=== PATIENT | female | born 1975 | race Caucasian/White ===

== ENCOUNTER → 2021-04-27 16:08 | Outpatient (CLI) | payer OTHER, SELFPAY ==
[2021-04-27 16:48] LABS: Basophils # 0.2 K/mm3 (0-0.2); Eosinophils # 0.5 K/mm3 (0.0-0.4); Eosinophils % 3.3 % (0.1-12.0); Hematocrit 39.5 % (37.0-47.0); Lymphocytes # 4.1 K/mm3 (0.7-4.5); Lymphocytes % 26.2 % (10-50); Mean Corpuscular HGB Conc 30.4 g/dL (31.8-35.4); Mean Corpuscular Hemoglobin 28.2 pg (27.0-31.2); Mean Corpuscular Volume 92.5 fl (81-99); Mean Platelet Volume 8.6 fl (7.4-10.4); Monocytes # 1.1 K/mm3 (0.1-1.0); Monocytes % 6.8 % (1.7-9.3); Neutrophils # 9.8 K/mm3 (1.8-7.8); Neutrophils % 62.6 % (37.0-80.0); Red Blood Count 4.27 M/mm3 (4.20-5.40); Red Cell Distribution Width 16.8 % (11.5-17.5); White Blood Count 15.7 K/mm3 (4.8-10.8)
[2021-04-27 16:49] LABS: Platelet Count 1060 K/mm3 (142-424)
[2021-04-27 16:51] LABS: MANUAL DIFFERENTIAL MANUAL DIFFERENTIAL (MANUAL DIFF)
[2021-04-27 17:48] LABS: Eosinophils % 3 % (0-3); Hypochromasia 2+; Lymphocytes % 23 % (10-50); Monocytes % 7 % (2-9); Neutrophils % 67 % (42-76); Total Cells Counted 100
[2021-04-27 17:49] LABS: Anisocytosis 1+; Platelet Estimate Marked Increase; Target Cells 1+
[2021-04-27 18:28] LABS: Alanine Aminotransferase 20 U/L (12-78); Albumin Level 3.8 g/dl (3.5-5.0); Albumin/Globulin Ratio 1.5 (1.1-1.8); Alkaline Phosphatase 77 U/L (38-126); Anion Gap 9.8 mEq/L (5-15); Aspartate Amino Transferase 24 U/L (14-36); Bilirubin,Total 0.2 mg/dl (0.2-1.3); Blood Urea Nitrogen 9 mg/dl (7-17); Calcium 9.2 mg/dl (8.4-10.2); Carbon Dioxide 29 mmol/L (22.0-30.0); Chloride 104 mmol/L (98-107); Chol/HDL Ratio 3.6 (1-3.5); Cholesterol 135 mg/dl (140-200); Estimated Glomerular Filt Rate 109 ml/min (>60); GFR (African American) 131 ML/MIN (>60); Globulin 2.6 g/dL (1.3-3.2); Glucose 100 mg/dl (74-100); HDL Cholesterol 37 mg/dl (40-60); Potassium 4.8 mmoL/L (3.5-5.1); Sodium 138 mmol/L (136-145); Total Protein,Serum 6.4 g/dl (6.3-8.2); Triglycerides 130 mg/dl (30-150); VLDL Cholesterol 26 mg/dL (0-40)
[2021-04-27 18:39] LABS: Direct LDL Cholesterol 83.41 mg/dL (100-129)
[2021-04-27 18:58] LABS: Thyroid Stimulating Hormone 2.78 uIU/mL (0.465-4.68)
== END ==
PROVIDERS: Visit Provider Nurse Practitioner Family
DX: E11.9 Type 2 diabetes mellitus without complications (principal); I10 Essential (primary) hypertension; D75.839 Thrombocytosis, unspecified
CPT/HCPCS: 36415; 80053; 80061; 83036; 84443; 85007; 85025

== ENCOUNTER → 2022-08-28 12:06 | Outpatient (CLI) | payer OTHER, SELFPAY ==
[2022-08-28 12:41] LABS: Basophils # 0.3 K/mm3 (0-0.2); Basophils % 1.7 % (0.1-2.0); Eosinophils # 0.4 K/mm3 (0.0-0.4); Eosinophils % 2.2 % (0.1-12.0); Hematocrit 41.7 % (37.0-47.0); Hemoglobin 13.1 g/dL (12.2-16.2); Lymphocytes # 4.7 K/mm3 (0.7-4.5); Lymphocytes % 28.7 % (10-50); Mean Corpuscular HGB Conc 31.4 g/dL (31.8-35.4); Mean Corpuscular Hemoglobin 28.6 pg (27.0-31.2); Mean Corpuscular Volume 91.2 fl (81-99); Mean Platelet Volume 8.3 fl (7.4-10.4); Monocytes % 6.3 % (1.7-9.3); Neutrophils # 10.1 K/mm3 (1.8-7.8); Neutrophils % 61.2 % (37.0-80.0); Red Blood Count 4.57 M/mm3 (4.20-5.40); Red Cell Distribution Width 14.9 % (11.5-17.5); White Blood Count 16.4 K/mm3 (4.8-10.8)
[2022-08-28 12:44] LABS: Platelet Count 1025 K/mm3 (142-424)
[2022-08-28 12:46] LABS: Hemoglobin A1C 13.3 % (4.0-6.0); MANUAL DIFFERENTIAL MANUAL DIFFERENTIAL (MANUAL DIFF)
[2022-08-28 13:00] LABS: Microalbumin < 6.000 mg/L (0-16.7)
[2022-08-28 14:04] LABS: Alanine Aminotransferase 25 U/L (12-78); Albumin Level 4.1 g/dl (3.5-5.0); Albumin/Globulin Ratio 1.6 (1.1-1.8); Alkaline Phosphatase 118 U/L (38-126); Anion Gap 13.5 mEq/L (5-15); Aspartate Amino Transferase 24 U/L (14-36); Bilirubin,Total 0.3 mg/dl (0.2-1.3); Blood Urea Nitrogen 11 mg/dl (7-17); Calcium 9.1 mg/dl (8.4-10.2); Carbon Dioxide 26 mmol/L (22.0-30.0); Chloride 101 mmol/L (98-107); Chol/HDL Ratio 4.3 (1-3.5); Cholesterol 178 mg/dl (140-200); Estimated Glomerular Filt Rate 108 ml/min (>60); GFR (African American) 131 ML/MIN (>60); Globulin 2.6 g/dL (1.3-3.2); Glucose 295 mg/dl (74-100); HDL Cholesterol 41 mg/dl (40-60); Potassium 4.5 mmoL/L (3.5-5.1); Sodium 136 mmol/L (136-145); Total Protein,Serum 6.7 g/dl (6.3-8.2); Triglycerides 216 mg/dl (30-150); VLDL Cholesterol 43 mg/dL (0-40)
[2022-08-28 14:15] LABS: Direct LDL Cholesterol 112.76 mg/dL (100-129)
[2022-08-28 18:35] LABS: Anisocytosis 1+; Lymphocytes % 25 % (10-50); Monocytes % 4 % (2-9); Neutrophils % 71 % (42-76); Platelet Estimate Normal; Total Cells Counted 100
== END ==
PROVIDERS: PCP Nurse Practitioner Family; Visit Provider Nurse Practitioner Family
DX: E11.9 Type 2 diabetes mellitus without complications (principal); I10 Essential (primary) hypertension; D47.3 Essential (hemorrhagic) thrombocythemia; D72.9 Disorder of white blood cells, unspecified
CPT/HCPCS: 36415; 80053; 80061; 82043; 83036; 85007; 85025

== ENCOUNTER → 2022-11-21 10:40 | Outpatient (CLI) | payer OTHER, SELFPAY ==
[2022-11-21 11:10] LABS: Basophils # 0.1 K/mm3 (0-0.2); Basophils % 0.5 % (0.1-2.0); Eosinophils # 0.5 K/mm3 (0.0-0.4); Eosinophils % 3.2 % (0.1-12.0); Hematocrit 40.9 % (37.0-47.0); Hemoglobin 12.8 g/dL (12.2-16.2); Lymphocytes # 4.8 K/mm3 (0.7-4.5); Lymphocytes % 29.9 % (10-50); Mean Corpuscular HGB Conc 31.3 g/dL (31.8-35.4); Mean Corpuscular Hemoglobin 28.5 pg (27.0-31.2); Mean Platelet Volume 7.9 fl (7.4-10.4); Monocytes % 6.4 % (1.7-9.3); Neutrophils # 9.7 K/mm3 (1.8-7.8); Platelet Count 987 K/mm3 (142-424); Red Blood Count 4.49 M/mm3 (4.20-5.40); Red Cell Distribution Width 14.9 % (11.5-17.5); White Blood Count 16.2 K/mm3 (4.8-10.8)
[2022-11-21 11:31] LABS: Iron 55 ug/dL (37-170); MANUAL DIFFERENTIAL MANUAL DIFFERENTIAL (MANUAL DIFF)
[2022-11-21 11:44] LABS: Total Iron Binding Capacity 405 ug/dL (265-497)
[2022-11-21 12:06] LABS: Ferritin 9.81 ng/ml (6.24-137)
[2022-11-21 12:08] LABS: Lymphocytes % 43 % (10-50); Monocytes % 9 % (2-9); Neutrophils % 48 % (42-76); Total Cells Counted 100
[2022-11-21 12:09] LABS: Platelet Estimate Marked Increase; RBC Morphology Normal
[2022-11-23 10:45] LABS: Peripheral Smear Review Scanned Result
[2022-12-01 20:09] LABS: Interpretation: Negative (.)
== END ==
PROVIDERS: PCP Nurse Practitioner Family; Visit Provider Internal Medicine Medical Oncology
DX: D75.839 Thrombocytosis, unspecified (principal); D72.829 Elevated white blood cell count, unspecified
CPT/HCPCS: 36415; 81206; 81270; 82728; 83540; 83550; 85007; 85025

== ENCOUNTER → 2023-03-28 12:35 | Outpatient (CLI) | payer OTHER, SELFPAY ==
[2023-03-28 12:59] LABS: Basophils # 0.1 K/mm3 (0-0.2); Basophils % 0.6 % (0.1-2.0); Eosinophils # 0.3 K/mm3 (0.0-0.4); Eosinophils % 2.6 % (0.1-12.0); Hematocrit 43.3 % (37.0-47.0); Lymphocytes # 4.3 K/mm3 (0.7-4.5); Lymphocytes % 33.3 % (10-50); Mean Corpuscular Hemoglobin 27.7 pg (27.0-31.2); Mean Corpuscular Volume 92.3 fl (81-99); Mean Platelet Volume 7.5 fl (7.4-10.4); Neutrophils # 7.1 K/mm3 (1.8-7.8); Neutrophils % 55.5 % (37.0-80.0); Platelet Count 948 K/mm3 (142-424); Red Blood Count 4.69 M/mm3 (4.20-5.40); Red Cell Distribution Width 15.6 % (11.5-17.5); White Blood Count 12.8 K/mm3 (4.8-10.8)
== END ==
LOC: LAB 12:36
PROVIDERS: PCP Nurse Practitioner Family; Visit Provider Internal Medicine Medical Oncology
DX: D64.9 Anemia, unspecified (principal)
CPT/HCPCS: 36415; 85025

== ENCOUNTER 2023-11-04 16:35 | Emergency (ER) | payer OTHER, SELFPAY ==
[2023-11-04 17:15] VITALS: BP 167/88; PULSE 78; RESP 19; TEMP 36.6; O2SAT 99; BMI 33.1
--- NOTE | 2023-11-04 17:25 | EXP.UTC ---
Discharge Plan Disposition Patient Disposition: Home, Self-Care Condition: Good Prescriptions Prescriptions: No Action metformin 500 mg tablet extended release 24 hr 1,000 mg PO DAILY Patient Comments: TAKE 2 TABLETS BY MOUTH ONCE DAILY WITH EVENING MEAL FOR 90 DAYS aspirin [Adult Aspirin Regimen] 81 mg tablet,delayed release (DR/EC) 81 mg PO DAILY losartan 50 mg tablet 50 mg PO DAILY Referrals Follow up/Referrals: Provider,Referral, MD [Primary Care Provider] - See instructions Activity Restrictions/Add. Instructions Additional Instructions/Restrictions: Follow up with your Family Doctor you was given list of accepting Doctors you may call and try to get an appointment Make sure to wear compression socks/hose this may help with swelling and circulation Return if needed Straight to ER if any life threatening symptoms Clinical Impressions Clinical Impression: Lower extremity pain Qualifiers: Laterality: right Qualified Code(s): M79.604 - Pain in right leg Instructions Patient Instructions: DI for Leg Pain Discharge ED Provider: Devi Ragland [facility] General Stated complaint: right leg pain, hot to touch Time Seen by Provider: 11/04/23 17:25 History of Present Illness Provider Complaint: Patient states that for over a week she has been having pain in her right lower leg from her ankle to her knee and at times it will swell and look red and feels warm inside worried that she may have a blood clot or something States that swelling is worse when she is up walking on it at work Denies injury States that swelling is down today because she didnt work and has been off of it Related Data Home Medications Medication Instructions Recorded Confirmed aspirin 81 mg tablet,delayed 81 mg PO DAILY 11/21/22 11/04/23 release (Adult Aspirin Regimen) losartan 50 mg tablet 50 mg PO DAILY 11/21/22 11/04/23 metformin 500 mg tablet,extended 1,000 mg PO DAILY 11/21/22 11/04/23 release 24 hr Allergies Allergy/AdvReac Type Severity Reaction Status Date / Time milk Allergy Verified 11/04/23 17:40 [facility] Disclaimer: The information contained in this section may have been updated after the patient was seen, as this information can be updated by other users. Medical History Asthma HTN (hypertension), benign T2DM (type 2 diabetes mellitus) Surgical History H/O section Family History Other Alcoholism Cancer Coronary artery disease Hypertension Stroke Social History Smoking Status: Never smoker alcohol intake: current current occupational status: employed Travel in the last 8 weeks: None ROS Obtained: Yes All systems reviewed & no additional complaints except as documented and Yes Systems reviewed as appropriate & no additional complaints except as documented Constitutional Constitutional: Reports system reviewed and no additional complaints, except as documented, Reports as per HPI and Denies fever(s) ENT Ears, Nose, Mouth, and Throat: Reports system reviewed and no additional complaints, except as documented and Reports as per HPI Cardiovascular Cardiovascular: Reports system reviewed and no additional complaints, except as documented and Reports as per HPI Respiratory Respiratory: Reports system reviewed and no additional complaints, except as documented and Reports as per HPI Musculoskeletal Musculoskeletal: Reports system reviewed and no additional complaints, except as documented, Reports as per HPI and Reports other Comments: Pain in right lower ext, Denies known injury reports redness on an off and feeling hot inside worried about blood clot Physical Exam General General appearance: alert and in no apparent distress ENT ENT exam: Present mucous membranes moist Respiratory Respiratory exam: Present normal lung sounds bilaterally; Absent respiratory distress or wheezes Cardiovascular Cardiovascular exam: Present regular rate, normal rhythm and normal heart sounds Expanded Lower Extremity Exam Right: Leg image: 1. no swelling, no redness, no discoloration noted Lower leg exam: Present tenderness; Absent swelling, abrasion, ecchymosis, deformity, crepitus, dislocation or erythema Ankle exam: Present normal inspection; Absent swelling, abrasion, laceration, ecchymosis, deformity, crepitus, dislocation or erythema Foot/toe exam: Present normal inspection; Absent tenderness, swelling, abrasion, laceration or erythema Neurovascular/Tendon exam: Present normal capillary refill; Absent pulse deficit Gait: observed and normal Neurological Exam Neurological exam: Present alert, oriented X3 and normal gait Medical Decision Making [place] Inquiry Pt receiving controlled substance: No [place] was queried for this patient: No Orders (Tests/Meds): ORDERS Category Date Time Status CA venous doppler LE RT Stat Y 11/04/23 17:19 Completed US Data US Images: Lower Extremity Preliminary Findings: Normal/NAD Findings Narrative: no DVT
[2023-11-04 18:04] VITALS: BP 167/88; PULSE 78; RESP 19; TEMP 36.6; O2SAT 99
== END 2023-11-04 18:04 | disposition home or self-care (01) ==
PROVIDERS: Emergency Provider Nurse Practitioner
DX: M79.604 Pain in right leg (principal); I10 Essential (primary) hypertension; E11.9 Type 2 diabetes mellitus without complications; Z79.84 Long term (current) use of oral hypoglycemic drugs
CPT/HCPCS: 93971; 99204; 99212; G0463

== ENCOUNTER 2024-01-08 13:27 | Emergency (ER) | payer OTHER, SELFPAY ==
[2024-01-08] VITALS (10 sets, daily range): BP systolic 119–158; BP diastolic 78–98; PULSE 72–95; RESP 13–18; TEMP 36.7–36.8; O2SAT 95–100; BMI 32.8
--- NOTE | 2024-01-08 13:38 | ECG_ITS ---
APPROVED REPORT Exam: Resting ECG HR:82 bpm ECG Measurements Heart Rate 82 AXES NE 176 P 59 QRSd 88 QRS 78 QT 359 T 60 QTc 397 Conclusion SINUS RHYTHM NORMAL ECG Electronically signed by : EZIO BURNETTE, 01/09/2024 15:58:49
[2024-01-08 13:53] LABS: Basophils # 0.1 K/mm3 (0-0.2); Basophils % 0.5 % (0.1-2.0); Eosinophils # 0.4 K/mm3 (0.0-0.4); Eosinophils % 1.9 % (0.1-12.0); Hematocrit 43.6 % (37.0-47.0); Hemoglobin 13.7 g/dL (12.2-16.2); Lymphocytes # 4.9 K/mm3 (0.7-4.5); Lymphocytes % 25.9 % (10-50); Mean Corpuscular HGB Conc 31.5 g/dL (31.8-35.4); Mean Corpuscular Hemoglobin 29.9 pg (27.0-31.2); Mean Corpuscular Volume 95.1 fl (81-99); Mean Platelet Volume 7.2 fl (7.4-10.4); Monocytes % 5.2 % (1.7-9.3); Neutrophils # 12.7 K/mm3 (1.8-7.8); Neutrophils % 66.5 % (37.0-80.0); Platelet Count 864 K/mm3 (142-424); Red Blood Count 4.59 M/mm3 (4.20-5.40); Red Cell Distribution Width 15.2 % (11.5-17.5); White Blood Count 19.1 K/mm3 (4.8-10.8)
[2024-01-08 13:54] LABS: MANUAL DIFFERENTIAL MANUAL DIFFERENTIAL (MANUAL DIFF)
--- NOTE | 2024-01-08 13:55 | PC.NURSE ---
DR BURNETTE AT BEDSIDE
[2024-01-08 13:56] LABS: Chloride 103 mmol/L (98-107); Sodium 134 mmol/L (136-145)
[2024-01-08 13:57] LABS: Potassium 3.9 mmoL/L (3.5-5.1)
--- NOTE | 2024-01-08 13:58 | CT_ITS ---
FINAL REPORT CLINICAL HISTORY: headache, blurred vision COMPARISON: None FINDINGS: CT NECK ANGIO, WITHOUT AND WITH CONTRAST TECHNIQUE: Thin section axial CT with IV contrast supplemented with 3D MIP reconstruction NASCET criteria and technique was utilized during interpretation. FINDINGS: Aortic arch: Arch shows no significant narrowing. Great vessel origins are widely patent. Right carotid: No significant stenosis is seen of the cervical common or internal carotid artery. Left carotid: No significant stenosis is seen of the cervical common or internal carotid artery. Vertebrals: Left vertebral artery is dominant. No significant stenosis is present. IMPRESSION: No significant stenosis of the cervical carotid arteries This study was performed using automated techniques to achieve radiation exposure as low as reasonably Reviewed, Interpreted and Dictated by Clau Rodriguez MD Transcribed by Shira Barbosa Authenticated and [facility]
--- NOTE | 2024-01-08 13:58 | CT_ITS ---
FINAL REPORT CLINICAL HISTORY: headache, blurred vision COMPARISON: None FINDINGS: CTA HEAD TECHNIQUE: Thin section axial CT with contrast with 3D MIP reconstruction FINDINGS: No aneurysm is seen. Major intracranial vessels are patent without significant stenosis. . Note is made of a normal variant, the A1 segment of the right anterior cerebral artery is not seen, and the right NOBLE circulation is supplied by a patent anterior communicating artery from the left side. IMPRESSION: Normal variant of absent A1 segment of the right anterior cerebral artery. No intracranial vascular abnormality identified. This study was performed using automated techniques to achieve radiation exposure as low as reasonably achievable Reviewed, Interpreted and Dictated by Clau Rodriguez MD Transcribed by Shira Barbosa Authenticated and [facility]
--- NOTE | 2024-01-08 13:58 | CT_ITS ---
FINAL REPORT TECHNIQUE: Noncontrast exam CLINICAL HISTORY: headache, blurred vision COMPARISON: None FINDINGS: No abnormal density is seen. Ventricles are normal. There is no hemorrhage. No mass effect is seen. Bone windows show no evidence of fracture. IMPRESSION: No acute findings Reviewed, Interpreted and Dictated by Clau Rodriguez MD Transcribed by Shira Barbosa Authenticated and [facility]
[2024-01-08 13:59] LABS: Alanine Aminotransferase 25 U/L (12-78); Albumin Level 3.8 g/dl (3.5-5.0); Albumin/Globulin Ratio 1.4 (1.1-1.8); Alkaline Phosphatase 84 U/L (38-126); Anion Gap 12.9 mEq/L (5-15); Aspartate Amino Transferase 23 U/L (14-36); Bilirubin,Total 0.6 mg/dl (0.2-1.3); Blood Urea Nitrogen 8 mg/dl (7-17); Calcium 8.8 mg/dl (8.4-10.2); Carbon Dioxide 22 mmol/L (22.0-30.0); Creatinine Clearance Estimated 169 mL/min (50-200); Estimated Glomerular Filt Rate 133 ml/min (>60); GFR (African American) 161 ML/MIN (>60); Globulin 2.8 g/dL (1.3-3.2); Glucose 335 mg/dl (74-100); Total Protein,Serum 6.6 g/dl (6.3-8.2)
--- NOTE | 2024-01-08 14:02 | PC.NURSE ---
called respiratory to let them know about vbg ordered
--- NOTE | 2024-01-08 14:04 | PC.NURSE ---
RESPIRATORY AWARE OF VBG
--- NOTE | 2024-01-08 14:05 | XR_ITS ---
FINAL REPORT CLINICAL HISTORY: leukocytosis, feeling unwell COMPARISON: None FINDINGS: No acute pulmonary density is evident. There is no evidence of effusion or other pleural disease. The mediastinum has a normal appearance. The cardiac silhouette is unremarkable. IMPRESSION: Unremarkable chest exam. Reviewed, Interpreted and Dictated by Clau Rodriguez MD Transcribed by Shira Barbosa Authenticated and [facility]
[2024-01-08] MEDS: LACTATED RINGERS 1000ML 1,000 ML 999 ML IV (14:06)
[2024-01-08 14:11] LABS: Creatine Kinase 59 U/L (30-135); Magnesium 1.4 mg/dl (1.6-2.3)
--- NOTE | 2024-01-08 14:11 | PC.NURSE ---
PT ASSISTED TO RESTROOM AND BACK TO ROOM. URINE SAMPLE COLLECTED AND SENT TO LAB.
[2024-01-08 14:13] LABS: Lactate Venous 1.3 mmol/L (0.4-2.0); VBG Base Excess -3.6 mmol/L (-2.4-2.3); VBG HCO3 21.2 mmol/L (23-30); VBG Oxygen Saturation 76.4 % (50-70); VBG PCO2 35.3 mmol/L (35-51); VBG PO2 39.8 mmol/L (28-40); VBG Total CO2 22.3 mmol/L (23-27)
[2024-01-08 14:15] LABS: Activated Partial Thrombo Time 25.6 seconds (22.8-30.6); Prothrombin Time 10.2 seconds (10.1-12.5)
[2024-01-08 14:16] LABS: Microscopic, Urine URINE MICROSCOPIC (MICROSCOPIC)
[2024-01-08 14:16] LABS: Troponin I < 0.01 ng/ml (0.00-0.034)
[2024-01-08 14:20] LABS: Appearance,Urine CLEAR (Clear); Bilirubin,Urine Negative (Negative); Blood, Urine Negative (Negative); Color,Urine YELLOW (Yellow); Glucose,Urine (UA) 3+ (Negative); Ketones,Urine 1+ (Negative); Leukocyte Esterase,Urine Negative (Negative); Nitrate,Urine Negative (Negative); Protein,Urine Negative (Negative); Specific Gravity, Urine 1.025 (1.005-1.030); Urobilinogen,Urine 0.2 EU/dl (0.2)
[2024-01-08] MEDS: SODIUM CHLORIDE 0.9% 10ML SYR (RAD ONLY) 10 ML IV (14:23)
[2024-01-08] MEDS: 0.9 % SODIUM CHLORIDE 50 ML VIAL IV (14:23)
[2024-01-08] MEDS: IOPAMIDOL-370 (76%);100ML BOTTLE 100 ML IV (14:23)
[2024-01-08] MEDS: MAGNESIUM SULFATE IN WATER 2 GM/50 ML PIGGYBACK IV (14:23)
--- NOTE | 2024-01-08 14:25 | ED_ITS ---
Discharge Plan Disposition Patient Disposition: Home, Self-Care Prescriptions Prescriptions: No Action metformin 500 mg tablet extended release 24 hr 1,000 mg PO DAILY Patient Comments: TAKE 2 TABLETS BY MOUTH ONCE DAILY WITH EVENING MEAL FOR 90 DAYS aspirin [Adult Aspirin Regimen] 81 mg tablet,delayed release (DR/EC) 81 mg PO DAILY losartan 50 mg tablet 50 mg PO DAILY Referrals Follow up/Referrals: Margy Jc APRN [Primary Care Provider] - See instructions Activity Restrictions/Add. Instructions Additional Instructions/Restrictions: You may call [facility] endocrinology to make a follow-up appointment regarding your diabetes medications and management. You may call [phone] to make an appointment. No emergent medical condition identified today please return with any significant worsening symptoms or other concerns Clinical Impressions Clinical Impression: Hyperglycemia, General weakness, Headache, Hypomagnesemia Discharge ED Provider: Martha Diaz General Adult HPI <Martha Diaz DO - Last Filed: 01/08/24 14:58> General Chief complaint: Dizziness Stated complaint: weakness, leg pain , dizzy Time Seen by Provider: 01/08/24 13:36 Mode of Arrival: Ambulatory Source of Information: Patient Limitations: No Limitations Description of Symptoms (Recalled from ER Triage Doc. by RN): PT STATES SHE WOKE UP THIS AM WITH BLURRED VISION AND DIZZINESS, JUST STATES SHE FEELS OFF, HAD THIS SAME EPISODE LAST FRIDAY WENT TO [place] [facility] WHERE SHE RECEIVED 2L OF FLUIDS AND FELT BETTER, HAS FELT BETTER SINCE UNTIL TODAY, HX DM, STATES BS HAS BEEN HIGH AND WONDERS IF THAT MAY BE CAUSING IT History of Present Illness HPI narrative: This patient is a 48-year-old female with a history of hypertension, type 2 diabetes, and asthma presenting to the emergency department for evaluation with concern for headache, blurry vision, lightheadedness, and just feels off. She states that she is having a lot of aching and cramps in her legs. She thought maybe her blood sugar was high, so she did check it and it was greater than 400. She took her metformin, but states that she feels that this is likely because she has not been watching what she eats. She is not on insulin. Patient notes that this has been happening to her for a little bit, and she was evaluated 2 weeks ago in [place] emergency department where she was told she was dehydrated. She received 2 L of IV fluids. This did help and she had been feeling better since then until yesterday. Yesterday she started feeling like she was not herself. She denies any fevers, chills, numbness, tingling, weakness, gait disturbance, or other concerns. On review of systems, she does note leg swelling that is worse at the end of a long workday in which she stands on her feet all the time. No issues when she is able to rest. Related Data Home Medications Medication Instructions Recorded Confirmed aspirin 81 mg tablet,delayed 81 mg PO DAILY 11/21/22 01/08/24 release (Adult Aspirin Regimen) losartan 50 mg tablet 50 mg PO DAILY 11/21/22 01/08/24 metformin 500 mg tablet,extended 1,000 mg PO DAILY 11/21/22 01/08/24 release 24 hr Allergies Allergy/AdvReac Type Severity Reaction Status Date / Time milk Allergy Verified 11/04/23 17:40 [facility] <Martha Diaz DO - Last Filed: 01/08/24 14:58> [facility] Disclaimer: The information contained in this section may have been updated after the patient was seen, as this information can be updated by other users. Medical History Asthma T2DM (type 2 diabetes mellitus) HTN (hypertension), benign Surgical History H/O section Family History Other Alcoholism Cancer Coronary artery disease Hypertension Stroke Social History Smoking Status: Never smoker alcohol intake: current alcohol intake frequency: holidays/special occasions only current occupational status: employed Travel in the last 8 weeks: None <Martha Diaz DO - Last Filed: 01/08/24 14:58> ROS Obtained: Yes All systems reviewed & no additional complaints except as documented Physical Exam <Martha Diaz DO - Last Filed: 01/08/24 14:58> General General appearance: alert, in no apparent distress and obese Head Head exam: atraumatic and normocephalic Eye Eye exam: Present normal appearance, PERRL and EOMI ENT ENT exam: Present normal exam, normal oropharynx, mucous membranes moist and normal external ear exam Neck Neck exam: Present normal inspection, full ROM and trachea midline; Absent tenderness Chest Chest inspection: Present normal inspection and symmetric chest wall rise; Absent tenderness Respiratory Respiratory exam: Present normal lung sounds bilaterally; Absent respiratory distress, wheezes, stridor or accessory muscle use Cardiovascular Cardiovascular exam: Present regular rate and normal rhythm Abdominal Exam Abdominal exam: Present soft; Absent distention, tenderness or guarding Extremities Exam Extremities exam: Present normal inspection, full ROM and normal capillary refill; Absent tenderness or edema Back Exam Back exam: Present normal inspection and full ROM; Absent tenderness Neurological Exam Neurological exam: Present alert, oriented X3, CN II-XII intact and normal gait; Absent motor sensory deficit Psychiatric Psychiatric exam: Present normal affect and normal mood Skin Skin exam: Present warm and dry Medical Decision Making <Martha Diaz, DO - Last Filed: 01/08/24 14:58> Medical Records Medical records reviewed: Yes I reviewed the patient's medical records. [place] Inquiry Pt receiving controlled substance: No Vital Signs: 01/08/24 13:28 01/08/24 13:33 01/08/24 13:39 Temperature 98.2 F Temperature Source Oral Pulse Rate 89 89 Pulse Rate [Right Radial] 95 H Respiratory Rate 18 Blood Pressure 158/97 H 139/82 Blood Pressure [Right Arm] 158/97 H Blood Pressure Mean Blood Pressure Mean [Right Arm] 117 Blood Pressure Source [Right Arm] Automatic Cuff Blood Pressure Position [Right Arm] Sitting 02 Sat by Pulse Oximetry 98 97 95 Oxygen Delivery Method Room Air Room Air Room Air 01/08/24 14:30 01/08/24 14:46 01/08/24 15:00 Temperature Temperature Source Pulse Rate 78 84 79 Pulse Rate [Right Radial] Respiratory Rate 18 16 18 Blood Pressure 141/87 H 152/82 H 137/78 Blood Pressure [Right Arm] Blood Pressure Mean 105 105 103 Blood Pressure Mean [Right Arm] Blood Pressure Source [Right Arm] Blood Pressure Position [Right Arm] 02 Sat by Pulse Oximetry 99 97 96 Oxygen Delivery Method 01/08/24 15:31 01/08/24 15:45 01/08/24 16:45 Temperature Temperature Source Pulse Rate 78 72 75 Pulse Rate [Right Radial] Respiratory Rate Blood Pressure 119/98 H Blood Pressure [Right Arm] Blood Pressure Mean Blood Pressure Mean [Right Arm] Blood Pressure Source [Right Arm] Blood Pressure Position [Right Arm] 02 Sat by Pulse Oximetry 97 100 98 Oxygen Delivery Method Room Air Lab Data Lab results reviewed: Yes I reviewed the patient's lab results. Lab Results 01/08/24 13:38: WBC 19.1 H, RBC 4.59, Hgb 13.7, Hct 43.6, MCV 95.1, MCH 29.9, M CHC 31.5 L, RDW 15.2, Plt Count 864 H, MPV 7.2 L, Neut % (Auto) 66.5, Lymph % (Auto) 25.9, Wise % (Auto) 5.2, Eos % (Auto) 1.9, Baso % (Auto) 0.5, Neut # (Auto) 12.7 H, Lymph # (Auto) 4.9 H, Wise # (Auto) 1.0, Eos # (Auto) 0.4, Baso # (Auto) 0.1, Total Counted 100, Neutrophils % (Manual) 62, Lymphocytes % (Manual) 32, Monocytes % (Manual) 6, Platelet Estimate Marked increase, RBC Morphology Normal, PT 10.2, INR 0.90, APTT 25.6, Sodium 134 L, Potassium 3.9, Chloride 103, Carbon Dioxide 22, Anion Gap 12.9, BUN 8, Creatinine 0.50 L, Estimated Creat Clear 169, Estimated GFR 133, Est GFR ( Amer) 161, Glucose 335 H, Calcium 8.8, Magnesium 1.4 L, Total Bilirubin 0.6, AST 23, ALT 25, Alkaline Phosphatase 84, Total Creatine Kinase 59, Troponin I < 0.01, Total Protein 6.6, Albumin 3.8, Globulin 2.8, Albumin/Globulin Ratio 1.4, TSH 1.11, Thyroxine (T4) 7.6 01/08/24 13:58: VBG pH 7.40, VBG pCO2 35.3, VBG pO2 39.8, VBG HCO3 21.2 L, VBG Total CO2 22.3 L, VBG O2 Saturation 76.4 H, VBG Base Excess -3.6 L, VBG Lactic Acid 1.3 01/08/24 14:05: Urine Color Yellow, Urine Appearance Clear, Urine pH 6.0, Ur Specific [place] 1.025, Urine Protein Negative, Urine Glucose (UA) 3+, Urine Ketones 1+, Urine Blood Negative, Urine Nitrate Negative, Urine Bilirubin Negative, Urine Urobilinogen 0.2, Ur Leukocyte Esterase Negative, Urine RBC None, Urine WBC Occasional, Ur Squamous Epith Cells 3-5, Urine Bacteria Trace 01/08/24 13:38 01/08/24 13:38 Orders (Tests/Meds): ED MEDICATIONS Discontinued Medications Generic Name Dose Route Start Last Admin Trade Name Freq PRN Reason Stop Dose Admin Acetaminophen 1,000 mg 01/08/24 15:14 01/08/24 15:40 Acetaminophen 1,000mg/100ml Vial IV 01/08/24 15:15 1,000 mg ONCE ONE Administration Lactated Ringer's 1,000 mls @ 999 mls/hr 01/08/24 13:58 01/08/24 14:06 Lactated Ringer's 1000 Ml Bag IV 01/08/24 14:58 999 mls/hr .Q1H1M ONE Administration Magnesium Sulfate 2 gm in 50 mls @ 50 mls/hr 01/08/24 14:19 01/08/24 14:23 Magnesium Sulfate 2gm/50ml Premix IV 01/08/24 15:18 50 mls/hr ONCE ONE Administration Iopamidol 100 ml 01/08/24 14:22 01/08/24 14:23 Iopamidol-370 (76%);100ml Bottle IV 01/08/24 14:23 100 ml ONCE ONE Administration Ketorolac Tromethamine 15 mg 01/08/24 15:14 01/08/24 15:40 Ketorolac 30mg/Ml Vial IV 01/08/24 15:15 15 mg ONCE ONE Administration Metoclopramide HCl 5 mg 01/08/24 15:14 01/08/24 15:41 Metoclopramide Hcl 10mg/2ml Vial IVP 01/08/24 15:15 5 mg ONCE ONE Administration Sodium Chloride 10 ml 01/08/24 14:22 01/08/24 14:23 Sodium Chloride 0.9% 10ml Syr (Rad Only) IV 01/08/24 14:23 10 ml ONCE ONE Administration Sodium Chloride 50 ml 01/08/24 14:22 01/08/24 14:23 0.9 % Sodium Chloride 50 Ml Vial IV 01/08/24 14:23 50 ml ONCE ONE Administration ORDERS Category Date Time Status CT angio head Stat Cat Scan 01/08/24 13:[address] angio neck Stat Cat Scan 01/08/24 13:[address] head/brain wo con Stat Cat Scan 01/08/24 13:58 Completed CXR 2 view (NOT portable) [XR chest 2V] Stat Exams 01/08/24 14:05 Completed Activated Partial Thrombo Time Stat Lab 01/08/24 13:38 Completed CK [Creatine Kinase] Stat Lab 01/08/24 13:38 Completed Complete Blood Count Auto Diff Stat Lab 01/08/24 13:38 Completed Comprehensive Metabolic Panel Stat Lab 01/08/24 13:38 Completed Magnesium Stat Lab 01/08/24 13:38 Completed Prothrombin Time INR Stat Lab 01/08/24 13:38 Completed T4 (Thyroxine) Stat Lab 01/08/24 13:38 Completed Thyroid Stimulating Hormone Stat Lab 01/08/24 13:38 Completed Troponin I Q3H Lab 01/08/24 16:49 Received Troponin I Q3H Lab 01/08/24 19:45 Ordered Troponin I Stat Lab 01/08/24 13:38 Completed UA [Urinalysis and Microscopic] Stat Lab 01/08/24 14:05 Completed Venous Blood Gas Stat RT 01/08/24 13:58 Completed ECG Data Tracing #1: I reviewed this ECG and interpreted as documented below: Normal sinus rhythm with a ventricular rate of [address] changes concerning for ischemia. Normal axis and intervals. ECG initial impression date: 01/08/24 ECG initial impression time: 13:52 Medical Decision Narrative: In summary, this patient is a 48-year-old female presenting to the Emergency Department for evaluation of not feeling right, headache, lightheadedness, blurred vision, and intermittent leg swelling. Differential diagnoses considered include but are not limited to migraine, viral syndrome, tension headache, CVA, intracranial hemorrhage, hypertensive urgency, hyperglycemia, DKA, HHS, dehydration, electrolyte derangements. Ruling out the most morbid conditions drove assessment. It should be noted patient's history includes type 2 diabetes which is not at goal therapy. This complicates all aspects of care by increasing patient's risk for morbidity. On exam, the patient is well-appearing. She is neurologically intact with no focal neurologic deficits to suggest CVA or other intracranial pathology. Vitals are reassuring on cardiac telemetry. Cardiopulmonary and abdominal exams are benign. Workup included broad lab evaluation to evaluate for infectious and metabolic derangements as a cause of her symptoms. I did also include CT head, CT angiogram head and neck, and chest x-ray. Overall based on exam and the fact that the symptoms have been intermittent for a while, I do not feel that this is likely stroke or other acute intracranial pathology. Labs were obtained that demonstrated leukocytosis, which appears to be chronic. It is slightly worse today, but no evidence of infection that is obvious on clinical exam. She also has mild hyponatremia in the setting of hyperglycemia. Magnesium is also low at 1.4. Patient was given a bolus of IV fluids as well as 2 g of IV magnesium. Will assess for symptomatic improvement. Urinalysis demonstrates glucosuria and ketonuria, but patient does not have any elevation in anion gap or metabolic acidosis to suggest DKA/HHS. Patient care was signed out to the oncoming provider, Dr. Guadalupe, pending imaging results and disposition. <Severino Guadalupe MD - Last Filed: 01/08/24 17:08> Vital Signs: 01/08/24 13:28 01/08/24 13:33 01/08/24 13:39 Temperature 98.2 F Temperature Source Oral Pulse Rate 89 89 Pulse Rate [Right Radial] 95 H Respiratory Rate 18 Blood Pressure 158/97 H 139/82 Blood Pressure [Right Arm] 158/97 H Blood Pressure Mean Blood Pressure Mean [Right Arm] 117 Blood Pressure Source [Right Arm] Automatic Cuff Blood Pressure Position [Right Arm] Sitting 02 Sat by Pulse Oximetry 98 97 95 Oxygen Delivery Method Room Air Room Air Room Air 01/08/24 14:30 01/08/24 14:46 01/08/24 15:00 Temperature Temperature Source Pulse Rate 78 84 79 Pulse Rate [Right Radial] Respiratory Rate 18 16 18 Blood Pressure 141/87 H 152/82 H 137/78 Blood Pressure [Right Arm] Blood Pressure Mean 105 105 103 Blood Pressure Mean [Right Arm] Blood Pressure Source [Right Arm] Blood Pressure Position [Right Arm] 02 Sat by Pulse Oximetry 99 97 96 Oxygen Delivery Method 01/08/24 15:31 01/08/24 15:45 01/08/24 16:45 Temperature Temperature Source Pulse Rate 78 72 75 Pulse Rate [Right Radial] Respiratory Rate Blood Pressure 119/98 H Blood Pressure [Right Arm] Blood Pressure Mean Blood Pressure Mean [Right Arm] Blood Pressure Source [Right Arm] Blood Pressure Position [Right Arm] 02 Sat by Pulse Oximetry 97 100 98 Oxygen Delivery Method Room Air Lab Data Lab results reviewed: Yes I reviewed the patient's lab results. Lab Results 01/08/24 13:38: WBC 19.1 H, RBC 4.59, Hgb 13.7, Hct 43.6, MCV 95.1, MCH 29.9, M CHC 31.5 L, RDW 15.2, Plt Count 864 H, MPV 7.2 L, Neut % (Auto) 66.5, Lymph % (Auto) 25.9, Wise % (Auto) 5.2, Eos % (Auto) 1.9, Baso % (Auto) 0.5, Neut # (Auto) 12.7 H, Lymph # (Auto) 4.9 H, Wise # (Auto) 1.0, Eos # (Auto) 0.4, Baso # (Auto) 0.1, Total Counted 100, Neutrophils % (Manual) 62, Lymphocytes % (Manual) 32, Monocytes % (Manual) 6, Platelet Estimate Marked increase, RBC Morphology Normal, PT 10.2, INR 0.90, APTT 25.6, Sodium 134 L, Potassium 3.9, Chloride 103, Carbon Dioxide 22, Anion Gap 12.9, BUN 8, Creatinine 0.50 L, Estimated Creat Clear 169, Estimated GFR 133, Est GFR ( Amer) 161, Glucose 335 H, Calcium 8.8, Magnesium 1.4 L, Total Bilirubin 0.6, AST 23, ALT 25, Alkaline Phosphatase 84, Total Creatine Kinase 59, Troponin I < 0.01, Total Protein 6.6, Albumin 3.8, Globulin 2.8, Albumin/Globulin Ratio 1.4, TSH 1.11, Thyroxine (T4) 7.6 01/08/24 13:58: VBG pH 7.40, VBG pCO2 35.3, VBG pO2 39.8, VBG HCO3 21.2 L, VBG Total CO2 22.3 L, VBG O2 Saturation 76.4 H, VBG Base Excess -3.6 L, VBG Lactic Acid 1.3 01/08/24 14:05: Urine Color Yellow, Urine Appearance Clear, Urine pH 6.0, Ur Specific [place] 1.025, Urine Protein Negative, Urine Glucose (UA) 3+, Urine Ketones 1+, Urine Blood Negative, Urine Nitrate Negative, Urine Bilirubin Negative, Urine Urobilinogen 0.2, Ur Leukocyte Esterase Negative, Urine RBC None, Urine WBC Occasional, Ur Squamous Epith Cells 3-5, Urine Bacteria Trace Orders (Tests/Meds): ED MEDICATIONS Discontinued Medications Generic Name Dose Route Start Last Admin Trade Name Abdiq PRN Reason Stop Dose Admin Acetaminophen 1,000 mg 01/08/24 15:14 01/08/24 15:40 Acetaminophen 1,000mg/100ml Vial IV 01/08/24 15:15 1,000 mg ONCE ONE Administration Lactated Ringer's 1,000 mls @ 999 mls/hr 01/08/24 13:58 01/08/24 14:06 Lactated Ringer's 1000 Ml Bag IV 01/08/24 14:58 999 mls/hr .Q1H1M ONE Administration Magnesium Sulfate 2 gm in 50 mls @ 50 mls/hr 01/08/24 14:19 01/08/24 14:23 Magnesium Sulfate 2gm/50ml Premix IV 01/08/24 15:18 50 mls/hr ONCE ONE Administration Iopamidol 100 ml 01/08/24 14:22 01/08/24 14:23 Iopamidol-370 (76%);100ml Bottle IV 01/08/24 14:23 100 ml ONCE ONE Administration Ketorolac Tromethamine 15 mg 01/08/24 15:14 01/08/24 15:40 Ketorolac 30mg/Ml Vial IV 01/08/24 15:15 15 mg ONCE ONE Administration Metoclopramide HCl 5 mg 01/08/24 15:14 01/08/24 15:41 Metoclopramide Hcl 10mg/2ml Vial IVP 01/08/24 15:15 5 mg ONCE ONE Administration Sodium Chloride 10 ml 01/08/24 14:22 01/08/24 14:23 Sodium Chloride 0.9% 10ml Syr (Rad Only) IV 01/08/24 14:23 10 ml ONCE ONE Administration Sodium Chloride 50 ml 01/08/24 14:22 01/08/24 14:23 0.9 % Sodium Chloride 50 Ml Vial IV 01/08/24 14:23 50 ml ONCE ONE Administration ORDERS Category Date Time Status CT angio head Stat Cat Scan 01/08/24 13:[address] angio neck Stat Cat Scan 01/08/24 13:[address] head/brain wo con Stat Cat Scan 01/08/24 13:58 Completed CXR 2 view (NOT portable) [XR chest 2V] Stat Exams 01/08/24 14:05 Completed Activated Partial Thrombo Time Stat Lab 01/08/24 13:38 Completed CK [Creatine Kinase] Stat Lab 01/08/24 13:38 Completed Complete Blood Count Auto Diff Stat Lab 01/08/24 13:38 Completed Comprehensive Metabolic Panel Stat Lab 01/08/24 13:38 Completed Magnesium Stat Lab 01/08/24 13:38 Completed Prothrombin Time INR Stat Lab 01/08/24 13:38 Completed T4 (Thyroxine) Stat Lab 01/08/24 13:38 Completed Thyroid Stimulating Hormone Stat Lab 01/08/24 13:38 Completed Troponin I Q3H Lab 01/08/24 16:49 Received Troponin I Q3H Lab 01/08/24 19:45 Ordered Troponin I Stat Lab 01/08/24 13:38 Completed UA [Urinalysis and Microscopic] Stat Lab 01/08/24 14:05 Completed Venous Blood Gas Stat RT 01/08/24 13:58 Completed Medical Decision Narrative: In summary, this patient is a 48-year-old female presenting to the Emergency Department for evaluation of not feeling right, headache, lightheadedness, blurred vision, and intermittent leg swelling. Differential diagnoses considered include but are not limited to migraine, viral syndrome, tension headache, CVA, intracranial hemorrhage, hypertensive urgency, hyperglycemia, DKA, HHS, dehydration, electrolyte derangements. Ruling out the most morbid conditions drove assessment. It should be noted patient's history includes type 2 diabetes which is not at goal therapy. This complicates all aspects of care by increasing patient's risk for morbidity. On exam, the patient is well-appearing. She is neurologically intact with no focal neurologic deficits to suggest CVA or other intracranial pathology. Vitals are reassuring on cardiac telemetry. Cardiopulmonary and abdominal exams are benign. Workup included broad lab evaluation to evaluate for infectious and metabolic derangements as a cause of her symptoms. I did also include CT head, CT angiogram head and neck, and chest x-ray. Overall based on exam and the fact that the symptoms have been intermittent for a while, I do not feel that this is likely stroke or other acute intracranial pathology. Labs were obtained that demonstrated leukocytosis, which appears to be chronic. It is slightly worse today, but no evidence of infection that is obvious on clinical exam. She also has mild hyponatremia in the setting of hyperglycemia. Magnesium is also low at 1.4. Patient was given a bolus of IV fluids as well as 2 g of IV magnesium. Will assess for symptomatic improvement. Urinalysis demonstrates glucosuria and ketonuria, but patient does not have any elevation in anion gap or metabolic acidosis to suggest DKA/HHS. Patient care was signed out to the oncoming provider, Dr. Guadalupe, pending imaging results and disposition. Reassessment this is Dr. Guadalupe took over from Dr. Diaz. Patient has a chronic leukocytosis and thrombocytosis which are unchanged from previous. CT scans performed which I first interpreted also looked at radiology reads which were unremarkable. Patient on reassessment has a normal neurologic exam is feeling much better vision has improved headache has improved has a nonfocal exam. It is possible that this is all secondary to chronic and poorly controlled diabetes she states her last A1c was 11 she is not on any insulin is only been taking oral medications. Given her referral to endocrinology she is been given return precautions she was discharged in stable condition. Critical Care <Martha Diaz, DO - Last Filed: 01/08/24 14:58> Critical Care Time Critical Care Time: No
[2024-01-08 14:29] LABS: T4 (Thyroxine) 7.6 ug/dl (5.53-11.0)
[2024-01-08 14:31] LABS: Bacteria,Urine Trace /lpf; WBC,Urine Occasional #/hpf (0-3)
[2024-01-08 14:39] LABS: Lymphocytes % 32 % (10-50); Monocytes % 6 % (2-9); Neutrophils % 62 % (42-76); RBC Morphology Normal; Total Cells Counted 100
[2024-01-08 14:40] LABS: Platelet Estimate Marked Increase
[2024-01-08 14:43] LABS: Thyroid Stimulating Hormone 1.11 uIU/mL (0.465-4.68)
[2024-01-08] MEDS: KETOROLAC 30MG/ML VIAL 15 MG IV (15:40)
[2024-01-08] MEDS: ACETAMINOPHEN 1,000MG/100ML VIAL 1000 MG IV (15:40)
[2024-01-08] MEDS: METOCLOPRAMIDE HCL 10MG/2ML VIAL 5 MG IVP (15:41)
--- NOTE | 2024-01-08 16:49 | PC.NURSE ---
PT RESTING IN BED. CALL LIGHT WITHIN REACH. UPDATED ON PLAN OF CARE. NO QUESTIONS OR CONCERNS VOICED.
[2024-01-08 17:39] LABS: Troponin I < 0.01 ng/ml (0.00-0.034)
== END 2024-01-08 17:15 | disposition home or self-care (01) ==
PROVIDERS: Emergency Provider Emergency Medicine; PCP Nurse Practitioner
DX: E11.65 Type 2 diabetes mellitus with hyperglycemia (principal); E83.42 Hypomagnesemia; R51.9 Headache, unspecified; R53.1 Weakness; R42 Dizziness and giddiness; I10 Essential (primary) hypertension; Z79.84 Long term (current) use of oral hypoglycemic drugs
CPT/HCPCS: 70450; 70496; 70498; 71046; 80053; 81001; 82550; 82803; 83735; 84436; 84443; 84484; 85007; 85025; 85027; 85610; 85730; 93005; 96365; 96375; 99285; J0131; J1885; J2765; J3475; J7120; Q9967

== ENCOUNTER 2024-05-19 08:41 | Emergency (ER) | payer OTHER, SELFPAY ==
--- NOTE | 2024-05-19 09:29 | EXP.UTC ---
Discharge Plan Disposition Patient Disposition: Home, Self-Care Condition: Good Prescriptions Prescriptions: New benzonatate 100 mg capsule 100 mg PO TIDP PRN (Reason: Cough) Qty: 30 0RF albuterol sulfate [Ventolin HFA] 90 mcg/actuation HFA aerosol inhaler 2 puff inhalation Q6H PRN (Reason: shortness of breath or wheezing) Qty: 6.7 0RF amoxicillin-pot clavulanate 875-125 mg Tablet 1 tab PO Q12H Qty: 20 0RF No Action metformin 500 mg tablet extended release 24 hr 1,000 mg PO DAILY Patient Comments: TAKE 2 TABLETS BY MOUTH ONCE DAILY WITH EVENING MEAL FOR 90 DAYS losartan 50 mg tablet 50 mg PO DAILY Referrals Follow up/Referrals: Provider,Referral, MD [Primary Care Provider] - See instructions Activity Restrictions/Add. Instructions Additional Instructions/Restrictions: Drink plenty of fluids. Take tylenol or ibuprofen for pain or fever. Take the medications as directed. Follow up with your regular doctor. GO TO THE ER FOR ANY WORSENING SYMPTOMS Clinical Impressions Clinical Impression: Acute bronchitis, Sinusitis, Diabetes Stand Alone Forms Stand Alone Forms: Work/School Release Instructions Patient Instructions: DI for Sinusitis Print Language Print Language: Czech Discharge ED Provider: Christopher Mobley [facility] General Stated complaint: dizzy, shaky Time Seen by Provider: 05/19/24 09:29 Related Data Home Medications ?Medication ?Instructions ?Recorded ?Confirmed losartan 50 mg tablet 50 mg PO DAILY 11/21/22 05/19/24 metformin 500 mg tablet,extended 1,000 mg PO DAILY 11/21/22 05/19/24 release 24 hr Previous Rx's ?Medication ?Instructions ?Recorded albuterol sulfate 90 mcg/actuation 2 puff inhalation Q6H PRN 05/19/24 aerosol inhaler (Ventolin HFA) shortness of breath or wheezing #6.7 grams amoxicillin 875 mg-potassium 1 tab PO Q12H #20 tabs 05/19/24 clavulanate 125 mg tablet benzonatate 100 mg capsule 100 mg PO TIDP PRN Cough #30 caps 05/19/24 Allergies Allergy/AdvReac Type Severity Reaction Status Date / Time milk Allergy Verified 11/04/23 17:40 [facility] Disclaimer: The information contained in this section may have been updated after the patient was seen, as this information can be updated by other users. Medical History Asthma T2DM (type 2 diabetes mellitus) HTN (hypertension), benign Surgical History H/O section Family History Other Alcoholism Cancer Coronary artery disease Hypertension Stroke Social History Smoking Status: Never smoker alcohol intake: current alcohol intake frequency: holidays/special occasions only current occupational status: employed Travel in the last 8 weeks: None ROS Obtained: Yes All systems reviewed & no additional complaints except as documented Constitutional Constitutional: Reports poor appetite Eyes Eyes: Reports system reviewed and no additional complaints, except as documented ENT Ears, Nose, Mouth, and Throat: Reports as per HPI Cardiovascular Cardiovascular: Reports system reviewed and no additional complaints, except as documented and Denies chest pain Respiratory Respiratory: Denies shortness of breath, Reports chest congestion, Reports cough, Denies stridor and Denies wheezing Gastrointestinal Gastrointestingal: Reports system reviewed and no additional complaints, except as documented; Denies abdominal pain, diarrhea or vomiting Musculoskeletal Musculoskeletal: Reports system reviewed and no additional complaints, except as documented and Denies arthralgias Integumentary/Breasts Skin/Breast: Reports system reviewed and no additional complaints, except as documented and Denies rash Neurologic Neurologic: Denies paresthesias Allergic/Immunologic Allergic/Immunologic: Denies wheezing Physical Exam General General appearance: alert and in no apparent distress Head Head exam: atraumatic, normocephalic and normal inspection Eye Eye exam: Present normal appearance, PERRL and EOMI ENT ENT exam: Present normal exam, normal oropharynx, mucous membranes moist, TM's normal bilaterally and normal external ear exam Neck Neck exam: Present normal inspection, full ROM and trachea midline; Absent meningismus or lymphadenopathy Chest Chest inspection: Present normal inspection and symmetric chest wall rise; Absent tenderness Respiratory Respiratory exam: Present normal lung sounds bilaterally; Absent respiratory distress Cardiovascular Cardiovascular exam: Present regular rate and normal rhythm; Absent JVD Abdominal Exam Abdominal exam: Present soft and normal bowel sounds; Absent distention, tenderness or guarding Extremities Exam Extremities exam: Present normal inspection, full ROM and normal capillary refill; Absent calf tenderness Back Exam Back exam: Present normal inspection; Absent tenderness Neurological Exam Neurological exam: Present alert and oriented X3 Psychiatric Psychiatric exam: Present normal affect and normal mood Skin Skin exam: Present warm, dry, intact and normal color Lymphatic Lymphatic Findings: no adenopathy Medical Decision Making Medical Records Medical records reviewed: No I reviewed the patient's medical records. Screening: Per USPSTF and CDC recommendations, given the prevalence of disease in our region, it is our hospital?s policy to screen for HIV and viral Hepatitis for all patients aged 18 and over and those with ongoing risk factors. Eloy Inquiry Pt receiving controlled substance: No Lab Data Lab results reviewed: Yes I reviewed the patient's lab results. Medical Decision Narrative: She refused testing for covid-19. She refused chest x-ray. She refused transfer to the er for treatment of hyperglycemia and further evaluation.
[2024-05-19 09:34] VITALS: BP 168/98; PULSE 110; RESP 18; TEMP 36.8; O2SAT 99; BMI 27.7
[2024-05-19 09:40] LABS: POC Glucose,Bedside 349 (70-110)
[2024-05-19 10:08] VITALS: BP 168/98; PULSE 110; RESP 18; TEMP 36.8
== END 2024-05-19 10:09 | disposition home or self-care (01) ==
PROVIDERS: Emergency Provider Nurse Practitioner Family
DX: J20.9 Acute bronchitis, unspecified (principal); J01.80 Other acute sinusitis; E11.9 Type 2 diabetes mellitus without complications
CPT/HCPCS: 82962; 99213; G0381

== ENCOUNTER 2024-10-22 06:23 | Emergency (ER) | payer MEDICAID, SELFPAY ==
[2024-10-22 06:30] VITALS: BP 159/95; PULSE 95; RESP 16; TEMP 36.6; O2SAT 100; BMI 24.0
[2024-10-22 06:31] VITALS: BP 159/95; PULSE 88; O2SAT 99
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
[2024-10-22] MEDS: ACETAMINOPHEN 500MG TAB 1000 MG PO (06:45)
[2024-10-22] MEDS: IBUPROFEN 600 MG TABLET PO (06:45)
--- NOTE | 2024-10-22 07:10 | PC.NURSE ---
pt arrived back to room from xray
--- NOTE | 2024-10-22 07:12 | PC.NURSE ---
pt arrived back to room from ct
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
[2024-10-22 07:53] VITALS: BP 141/92; PULSE 75; RESP 16; TEMP 36.6; O2SAT 100
== END 2024-10-22 07:59 | disposition home or self-care (01) ==
PROVIDERS: Emergency Provider Emergency Medicine; PCP Nurse Practitioner
DX: M25.511 Pain in right shoulder (principal); V49.10XA Passenger injured in collision with unspecified motor vehicles in nontraffic accident, initial encounter
CPT/HCPCS: 99284; 71046; 73030; 73060; 73080